=== PATIENT | female | born 1960 | race African-American/Black ===

== ENCOUNTER 2017-03-11 11:12 | Emergency (ER) | payer OTHER | END 2017-03-11 11:51 | disposition home or self-care (01) | LOC: NAV ERS 11:12 | DX: J42 Unspecified chronic bronchitis (principal); E11.9 Type 2 diabetes mellitus without complications; I10 Essential (primary) hypertension; F32.9 Major depressive disorder, single episode, unspecified; F41.9 Anxiety disorder, unspecified; Z79.899 Other long term (current) drug therapy; Z79.02 Long term (current) use of antithrombotics/antiplatelets; Z79.4 Long term (current) use of insulin | CPT/HCPCS: 99283 ==

== ENCOUNTER 2017-08-07 22:42 | Emergency (ER) | payer OTHER ==
[2017-08-07] MEDS ORDERED: HYDROcodone/Acetaminophen 5/325 mg Tablet ONE (23:29)
[2017-08-07] MEDS ORDERED: predniSONE 20 MG TAB ONE (23:29)
[2017-08-07] MEDS ORDERED: predniSONE 10 MG TAB ONE (23:29)
== END 2017-08-07 23:45 | disposition home or self-care (01) ==
LOC: NAV ERS 22:42
DX: M54.12 Radiculopathy, cervical region (principal); E11.42 Type 2 diabetes mellitus with diabetic polyneuropathy; E66.9 Obesity, unspecified; F41.9 Anxiety disorder, unspecified; I10 Essential (primary) hypertension; F32.9 Major depressive disorder, single episode, unspecified; Z86.73 Personal history of transient ischemic attack (TIA), and cerebral infarction without residual deficits; Z79.4 Long term (current) use of insulin; Z79.899 Other long term (current) drug therapy
CPT/HCPCS: 99283; J7506; J7512

== ENCOUNTER 2017-12-20 02:06 | Emergency (ER) | payer OTHER ==
[2017-12-20] MEDS ORDERED: Oseltamivir 75 MG CAP ONE (02:47)
== END 2017-12-20 02:48 | disposition home or self-care (01) ==
LOC: NAV ERS 02:06
DX: J11.1 Influenza due to unidentified influenza virus with other respiratory manifestations (principal); E11.40 Type 2 diabetes mellitus with diabetic neuropathy, unspecified; I10 Essential (primary) hypertension; F41.9 Anxiety disorder, unspecified; F32.9 Major depressive disorder, single episode, unspecified; E66.9 Obesity, unspecified; Z79.899 Other long term (current) drug therapy; Z86.73 Personal history of transient ischemic attack (TIA), and cerebral infarction without residual deficits; Z79.4 Long term (current) use of insulin
CPT/HCPCS: 87804; 99283

== ENCOUNTER 2018-02-07 21:47 | Emergency (ER) | payer OTHER ==
[2018-02-07] MEDS ORDERED: methylPREDNISolone Sod Succ/PF 125 MG/2 ML VIAL ONE (22:01)
== END 2018-02-07 22:30 | disposition home or self-care (01) ==
LOC: NAV ERS 21:47
DX: L25.9 Unspecified contact dermatitis, unspecified cause (principal); E66.9 Obesity, unspecified; E11.42 Type 2 diabetes mellitus with diabetic polyneuropathy; I10 Essential (primary) hypertension; G47.00 Insomnia, unspecified; F41.9 Anxiety disorder, unspecified; F32.9 Major depressive disorder, single episode, unspecified; Z79.4 Long term (current) use of insulin; Z86.73 Personal history of transient ischemic attack (TIA), and cerebral infarction without residual deficits; Z79.899 Other long term (current) drug therapy
CPT/HCPCS: 96372; J2930

== ENCOUNTER 2018-03-17 12:49 | Emergency (ER) | payer OTHER | END 2018-03-17 13:53 | disposition home or self-care (01) | LOC: NAV ERS 12:49 | DX: E11.42 Type 2 diabetes mellitus with diabetic polyneuropathy (principal); E66.9 Obesity, unspecified; I10 Essential (primary) hypertension; G47.30 Sleep apnea, unspecified; F41.9 Anxiety disorder, unspecified; F32.9 Major depressive disorder, single episode, unspecified; Z79.4 Long term (current) use of insulin; Z86.73 Personal history of transient ischemic attack (TIA), and cerebral infarction without residual deficits; Z79.02 Long term (current) use of antithrombotics/antiplatelets; Z79.899 Other long term (current) drug therapy | CPT/HCPCS: 36416; 99283 ==

== ENCOUNTER 2018-08-20 23:18 | Emergency (ER) | payer OTHER ==
[2018-08-21 00:01] LABS: #Basophils 0.1 thou/uL (0.0-0.2); #Eosinphils 0.2 thou/uL (0.0-0.7); #Lymphocytes 3.9 thou/uL (1.20-3.40); #Monocytes 0.7 thou/uL (0.11-0.59); %Basophils 1.3 % (0.0-1.0); %Monocytes 7.6 % (0.0-10.0); %Neutrophils 45.1 % (42.0-75.0); Hemoglobin 11.2 g/dL (12.0-16.0); Mean Corpuscular HGB CONC 30.7 g/dL (32.0-36.0); Mean Corpuscular Hemoglobin 25.8 pg (27.0-31.0); Mean Corpuscular Volume 83.9 fL (78.0-98.0); Mean Platelet Volume 10.7 fL (7.4-10.4); Platelet Count 329 thou/uL (130-400); RBC Distribution Width 14.1 % (11.5-14.5); Red Blood Cell (RBC) Count 4.33 mill/uL (4.20-5.40); White Blood Cell (WBC) Count 8.9 thou/uL (4.8-10.8)
[2018-08-21 00:15] LABS: ALT (SGPT) 20 U/L (8-55); AST (SGOT) 21 U/L (5-34); Albumin 3.9 g/dL (3.5-5.0); Alkaline Phosphatase 82 U/L (40-150); Anion Gap 15 mmol/L (10-20); BUN (Urea Nitrogen) 16 mg/dL (9.8-20.1); Bilirubin, Total 0.3 mg/dL (0.2-1.2); Calc. Creatinine Clearance 0 mL/min (70-130); Calcium 9.4 mg/dL (7.8-10.44); Carbon Dioxide 25 mmol/L (22-29); Chloride 104 mmol/L (98-107); Estimated GFR-MDRD 85; Globulin 3.1 g/dL (2.4-3.5); Glucose 180 mg/dL (70-105); Potassium 3.7 mmol/L (3.5-5.1); Sodium 140 mmol/L (136-145)
[2018-08-21 00:17] LABS: CKMB 1.8 ng/mL (0-6.6)
[2018-08-21] MEDS ORDERED: HYDROcodone/Acetaminophen 7.5/325 mg Tablet ONE (00:20)
--- NOTE | 2018-08-21 08:04 | RAD ---
CHEST PA AND LATERAL TWO VIEWS: History: 58-year-old female with history of chest pain. Comparison: 09-23-16 FINDINGS: Heart size is normal. The lungs are clear. No pneumonia, edema, pleural effusion or other acute proce ss. IMPRESSION: No acute intrathoracic disease. Stable from prior study. POS: OFF
--- NOTE | 2018-08-21 08:18 | CT ---
PRELIMINARY REPORT/[facility]/EMERGENTY AFTER-HOURS PROCEDURE CT Head Without Intravenous Contrast CLINICAL HISTORY: 58 years old, female; Pain; Headache TECHNIQUE: Axial computed tomography images of the head/brain without intravenous contrast. COMPARISON: No relevant prior studies available. FINDINGS: No definite acute skull fracture. Included paranasal sinuses are essentially clear. No acute intracranial hemorrhage or mass effect. Ventricle size is normal for age. No definite acute infarct by CT. IMPRESSION: No acute intracranial bleed or mass effect. Thank you for allowing us to participate in the care of your patient. Dictated and Authenticated by: Cade Fregoso MD 08/21/2018 1:03 AM Central Time ([place] & [place]) FINAL REPORT EMERGENCY AFTER HOURS BRAIN CT WITHOUT IV CONTRAST: Date: 08/21/18 Time: 0002 hours COMPARISON: 01/03/15. FINDINGS/IMPRESSION: No mass or bleed, or other acute process. Report in agreement with preliminary report given on-call by [facility]. POS: OFF
== END 2018-08-21 01:48 | disposition home or self-care (01) ==
LOC: NAV ERS 23:18
DX: M54.12 Radiculopathy, cervical region (principal); G62.9 Polyneuropathy, unspecified; Z86.73 Personal history of transient ischemic attack (TIA), and cerebral infarction without residual deficits; E11.9 Type 2 diabetes mellitus without complications; I10 Essential (primary) hypertension; G47.30 Sleep apnea, unspecified; Z79.4 Long term (current) use of insulin; F41.9 Anxiety disorder, unspecified; F32.9 Major depressive disorder, single episode, unspecified; Z79.899 Other long term (current) drug therapy
CPT/HCPCS: 70450; 71046; 80053; 82553; 84484; 85025; 93005

== ENCOUNTER 2018-08-23 18:07 | Emergency (ER) | payer OTHER ==
[2018-08-23] MEDS ORDERED: HYDROcodone/Acetaminophen 10/325 mg Tablet ONE (18:48)
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
== END 2018-08-23 21:17 | disposition home or self-care (01) ==
LOC: NAV ERS 18:07
DX: S33.5XXA Sprain of ligaments of lumbar spine, initial encounter (principal); S80.02XA Contusion of left knee, initial encounter; S50.02XA Contusion of left elbow, initial encounter; I10 Essential (primary) hypertension; Z86.73 Personal history of transient ischemic attack (TIA), and cerebral infarction without residual deficits; E66.9 Obesity, unspecified; E11.40 Type 2 diabetes mellitus with diabetic neuropathy, unspecified; G47.30 Sleep apnea, unspecified; F41.9 Anxiety disorder, unspecified; F32.9 Major depressive disorder, single episode, unspecified; Z79.4 Long term (current) use of insulin; Z79.899 Other long term (current) drug therapy; V43.52XA Car driver injured in collision with other type car in traffic accident, initial encounter
CPT/HCPCS: 72100

== ENCOUNTER 2018-08-25 09:40 | Emergency (ER) | payer OTHER | END 2018-08-25 10:30 | disposition left against medical advice (07) | LOC: NAV ERS 09:40 | DX: Z53.21 Procedure and treatment not carried out due to patient leaving prior to being seen by health care provider (principal) ==

== ENCOUNTER 2018-08-30 23:01 | Emergency (ER) | payer OTHER | END 2018-08-30 23:30 | disposition home or self-care (01) | LOC: NAV ERS 23:01 | DX: M62.838 Other muscle spasm (principal); L05.01 Pilonidal cyst with abscess; E78.5 Hyperlipidemia, unspecified; I10 Essential (primary) hypertension; Z79.899 Other long term (current) drug therapy | CPT/HCPCS: 99283 ==

== ENCOUNTER 2018-12-24 02:38 | Emergency (ER) | payer OTHER ==
--- NOTE | 2018-12-24 07:36 | RAD ---
FOUR VIEWS OF THE RIGHT KNEE: COMPARISON: None. HISTORY: Right knee pain and swelling for a week. FINDINGS: Four views right knee show no evidence of acute fracture or dislocation. There is severe patellofemo ral osteoarthritis with joint space narrowing and osteophyte formation. There are loose intracapsula r osseous bodies within the knee joints. A small knee effusion is seen. IMPRESSION: Severe right knee osteoarthritis without acute osseous abnormality. POS: [facility]
== END 2018-12-24 03:29 | disposition home or self-care (01) ==
LOC: NAV ERS 02:38
DX: M25.461 Effusion, right knee (principal); E11.40 Type 2 diabetes mellitus with diabetic neuropathy, unspecified; E78.5 Hyperlipidemia, unspecified; I10 Essential (primary) hypertension; Z79.4 Long term (current) use of insulin; Z79.899 Other long term (current) drug therapy; X50.9XXA Other and unspecified overexertion or strenuous movements or postures, initial encounter

== ENCOUNTER 2019-01-29 22:48 | Emergency (ER) | payer OTHER ==
--- NOTE | 2019-01-29 23:43 | RAD ---
LEFT SHOULDER THREE VIEWS: History: Pain. Comparison: None. FINDINGS: There are multiple calcified within the glenohumeral joint. Large glenoid and humeral head osteophyte s. Ossification along the biceps tendon versus old fracture of the glenoid. Ribs are intact. IMPRESSION: Severe degenerative changes of the shoulder. Nonemergent orthopedic consultation recommended for eval uation of arthroplasty. POS: [facility]
== END 2019-01-29 23:40 | disposition home or self-care (01) ==
LOC: NAV ERS 22:48
DX: M75.52 Bursitis of left shoulder (principal); E11.40 Type 2 diabetes mellitus with diabetic neuropathy, unspecified; E78.5 Hyperlipidemia, unspecified; I10 Essential (primary) hypertension; Z79.4 Long term (current) use of insulin; Z79.899 Other long term (current) drug therapy

== ENCOUNTER 2019-05-09 00:35 | Emergency (ER) | payer OTHER ==
[2019-05-09] MEDS ORDERED: Acetaminophen/Codeine 30-300mg Tablet ONE (01:15)
[2019-05-09] MEDS ORDERED: Cyclobenzaprine 10 MG TAB ONE (01:16)
== END 2019-05-09 02:10 | disposition home or self-care (01) ==
LOC: NAV ERS 00:35
DX: M62.830 Muscle spasm of back (principal); E11.40 Type 2 diabetes mellitus with diabetic neuropathy, unspecified; E78.5 Hyperlipidemia, unspecified; I10 Essential (primary) hypertension; F32.9 Major depressive disorder, single episode, unspecified; Z79.899 Other long term (current) drug therapy
CPT/HCPCS: 99283

== ENCOUNTER 2020-06-29 10:45 | Emergency (ER) | payer OTHER ==
[2020-06-29] MEDS ORDERED: methylPREDNISolone Sod Succ/PF 125 MG/2 ML VIAL ONE (11:12)
[2020-06-29] MEDS ORDERED: diphenhydrAMINE 50 MG/ML VIAL ONE (11:12)
[2020-06-29] MEDS ORDERED: Famotidine/PF 20 mg/2ml Vial ONE (11:12)
[2020-06-29] MEDS ORDERED: Sodium Chloride 0.9% 100 ML ONE (11:44)
[2020-06-29] MEDS ORDERED: Tranexamic Acid 1,000 MG/10 ML VIAL ONE (11:44)
== END 2020-06-29 12:45 | disposition home or self-care (01) ==
LOC: NAV ERS 10:45
DX: T78.3XXA Angioneurotic edema, initial encounter (principal); E11.40 Type 2 diabetes mellitus with diabetic neuropathy, unspecified; E78.5 Hyperlipidemia, unspecified; I10 Essential (primary) hypertension; Z79.4 Long term (current) use of insulin; Z79.899 Other long term (current) drug therapy
CPT/HCPCS: 94760; 96365; 96375; J1200; J2930; S0028

== ENCOUNTER 2020-08-10 16:22 | Emergency (ER) | payer OTHER | END 2020-08-10 17:11 | disposition home or self-care (01) | LOC: NAV ERS 16:22 | DX: M65.4 Radial styloid tenosynovitis [de Quervain] (principal); E11.40 Type 2 diabetes mellitus with diabetic neuropathy, unspecified; E78.5 Hyperlipidemia, unspecified; E78.00 Pure hypercholesterolemia, unspecified; I10 Essential (primary) hypertension; F32.9 Major depressive disorder, single episode, unspecified; Z79.4 Long term (current) use of insulin; Z79.899 Other long term (current) drug therapy | CPT/HCPCS: 29125 ==

== ENCOUNTER 2021-03-18 15:54 | Emergency (ER) | payer OTHER | END 2021-03-18 16:19 | disposition home or self-care (01) | LOC: NAV ERS 15:54 | DX: M25.562 Pain in left knee (principal); M25.551 Pain in right hip; E11.40 Type 2 diabetes mellitus with diabetic neuropathy, unspecified; E78.5 Hyperlipidemia, unspecified; I10 Essential (primary) hypertension; Z79.4 Long term (current) use of insulin; Z79.899 Other long term (current) drug therapy | CPT/HCPCS: 99281 ==

== ENCOUNTER 2021-05-11 15:40 | Outpatient (CLI) | payer OTHER | END 2021-05-11 15:41 | disposition home or self-care (01) | LOC: NAV RAD 15:40 | PROVIDERS: ATTEND Nurse Practitioner Family | DX: M17.12 Unilateral primary osteoarthritis, left knee (principal) ==

== ENCOUNTER 2021-05-26 20:44 | Emergency (ER) | payer OTHER ==
[2021-05-26] MEDS ORDERED: Lidocaine 1% (PF) 30 ML VIAL ONE (21:35)
[2021-05-26] MEDS ORDERED: Sulfameth/Trimethoprim DS 800-160mg TAB ONE (21:50)
== END 2021-05-26 21:52 | disposition home or self-care (01) ==
LOC: NAV ERS 20:44
DX: N76.4 Abscess of vulva (principal); E11.9 Type 2 diabetes mellitus without complications; E78.5 Hyperlipidemia, unspecified; I10 Essential (primary) hypertension; Z79.4 Long term (current) use of insulin; Z79.899 Other long term (current) drug therapy
CPT/HCPCS: 56405; 87070; 87077; 87186; 87205; J2001

== ENCOUNTER 2021-08-30 21:43 | Emergency (ER) | payer OTHER ==
[2021-08-30 22:13] LABS: Hemoglobin 13.1 g/dL (12.0-16.0); Mean Corpuscular HGB CONC 29.9 g/dL (32.0-36.0); Mean Corpuscular Hemoglobin 25.5 pg (27.0-31.0); Mean Corpuscular Volume 85.4 fL (78.0-98.0); Platelet Count 260 thou/uL (130-400); Red Blood Cell (RBC) Count 5.12 mill/uL (4.20-5.40); White Blood Cell (WBC) Count 10.4 thou/uL (4.8-10.8)
[2021-08-30 22:18] LABS: #Basophils 0.1 thou/uL (0.0-0.2); #Eosinphils 0.1 thou/uL (0.0-0.7); #Lymphocytes 4.5 thou/uL (1.20-3.40); #Monocytes 0.7 thou/uL (0.11-0.59); %Basophils 0.8 % (0.0-1.0); %Eosinophils 0.7 % (0.0-10.0); %Lymphocytes 43.1 % (21.0-51.0); %Monocytes 7.1 % (0.0-10.0); %Neutrophils 48.2 % (42.0-75.0); Hypochromia SLIGHT = 6-15 cells (100X) (0-5/hpf); MDiff Complete? YES; Platelet Morphology Comment Appears Adequate
[2021-08-30 22:24] LABS: ALT (SGPT) 15 U/L (8-55); AST (SGOT) 17 U/L (5-34); Albumin 3.9 g/dL (3.4-4.8); Alkaline Phosphatase 102 U/L (40-110); Anion Gap 13 mmol/L (10-20); BUN (Urea Nitrogen) 11 mg/dL (9.8-20.1); Bilirubin, Total 0.5 mg/dL (0.2-1.2); Calc. Creatinine Clearance 0 mL/min (70-130); Calcium 9.1 mg/dL (7.8-10.44); Carbon Dioxide 26 mmol/L (23-31); Chloride 109 mmol/L (98-107); Globulin 3.7 g/dL (2.4-3.5); Glucose 78 mg/dL (80-115); Protein, Total 7.6 g/dL (5.8-8.1); Sodium 145 mmol/L (136-145)
== END 2021-08-30 22:35 | disposition home or self-care (01) ==
LOC: NAV ERS 21:43
DX: R42 Dizziness and giddiness (principal); R51.9 Headache, unspecified; Z79.899 Other long term (current) drug therapy; Z79.4 Long term (current) use of insulin; E11.40 Type 2 diabetes mellitus with diabetic neuropathy, unspecified; E78.5 Hyperlipidemia, unspecified; E78.00 Pure hypercholesterolemia, unspecified; I10 Essential (primary) hypertension
CPT/HCPCS: 36416; 80053; 84484; 85025; 93005

== ENCOUNTER 2022-03-16 21:05 | Emergency (ER) | payer OTHER ==
[2022-03-16] MEDS ORDERED: Sulfameth/Trimethoprim DS 800-160mg TAB ONE (21:21)
== END 2022-03-16 21:32 | disposition home or self-care (01) ==
LOC: NAV ERS 21:05
DX: L02.416 Cutaneous abscess of left lower limb (principal); I10 Essential (primary) hypertension; E78.5 Hyperlipidemia, unspecified; E78.00 Pure hypercholesterolemia, unspecified; E11.40 Type 2 diabetes mellitus with diabetic neuropathy, unspecified; G47.30 Sleep apnea, unspecified; Z79.4 Long term (current) use of insulin; Z86.73 Personal history of transient ischemic attack (TIA), and cerebral infarction without residual deficits
CPT/HCPCS: 36416; 99283

== ENCOUNTER 2022-05-29 02:58 | Emergency (ER) | payer OTHER ==
[2022-05-29] MEDS ORDERED: Acetaminophen 325 MG TAB ONE (03:27)
== END 2022-05-29 03:33 | disposition home or self-care (01) ==
LOC: NAV ERS 02:58
DX: J34.89 Other specified disorders of nose and nasal sinuses (principal); E11.40 Type 2 diabetes mellitus with diabetic neuropathy, unspecified; E78.5 Hyperlipidemia, unspecified; I10 Essential (primary) hypertension; Z79.4 Long term (current) use of insulin; Z79.899 Other long term (current) drug therapy
CPT/HCPCS: 99283

== ENCOUNTER 2022-10-31 00:12 | Emergency (ER) | payer OTHER ==
[2022-10-31] MEDS ORDERED: Sodium Chloride 0.9% 1,000 ML ONE (01:12)
[2022-10-31] MEDS ORDERED: Ketorolac Tromethamine 30 MG/ML VIAL ONE ×2 (01:12→01:41)
[2022-10-31] MEDS ORDERED: Oxymetazoline HCl 0.05% (30 ML BOT) ONE (01:12)
[2022-10-31] MEDS ORDERED: Metoclopramide HCl 10 MG/2 ML VIAL ONE (01:12)
[2022-10-31] MEDS ORDERED: Ventolin HFA Inhaler 60 PUFF INHALER ONE (01:47)
== END 2022-10-31 01:59 | disposition home or self-care (01) ==
LOC: NAV ERS 00:12
DX: U07.1 COVID-19 (principal); J06.9 Acute upper respiratory infection, unspecified; E78.00 Pure hypercholesterolemia, unspecified; E11.40 Type 2 diabetes mellitus with diabetic neuropathy, unspecified; I10 Essential (primary) hypertension; Z86.73 Personal history of transient ischemic attack (TIA), and cerebral infarction without residual deficits; Z79.899 Other long term (current) drug therapy; Z79.02 Long term (current) use of antithrombotics/antiplatelets; Z79.4 Long term (current) use of insulin
CPT/HCPCS: 87804; 87807; 96372; 99284; J1885; J2765; J7050; U0003; U0005

== ENCOUNTER 2023-03-15 15:31 | Emergency (ER) | payer OTHER ==
[2023-03-15] MEDS ORDERED: Ketorolac Tromethamine 60 MG/2 ML VIAL ONE (16:51)
== END 2023-03-15 17:45 | disposition home or self-care (01) ==
LOC: NAV ERS 15:31
DX: M54.2 Cervicalgia (principal); R50.9 Fever, unspecified; E11.40 Type 2 diabetes mellitus with diabetic neuropathy, unspecified; E78.00 Pure hypercholesterolemia, unspecified; I10 Essential (primary) hypertension; Z86.73 Personal history of transient ischemic attack (TIA), and cerebral infarction without residual deficits; Z79.4 Long term (current) use of insulin
CPT/HCPCS: 36416; 87804; 96372; 99284; J1885

== ENCOUNTER 2023-06-12 03:16 | Emergency (ER) | payer OTHER | END 2023-06-12 04:05 | disposition home or self-care (01) | LOC: NAV ERS 03:16 | DX: L29.9 Pruritus, unspecified (principal); I10 Essential (primary) hypertension; E11.9 Type 2 diabetes mellitus without complications; Z86.73 Personal history of transient ischemic attack (TIA), and cerebral infarction without residual deficits; Z79.02 Long term (current) use of antithrombotics/antiplatelets; Z79.4 Long term (current) use of insulin | CPT/HCPCS: 99282 ==

== ENCOUNTER 2025-09-23 17:34 | Emergency (ER) | payer MEDICARE, MEDICAID ==
[2025-09-23 19:29] LABS: Hematocrit 23.4 % (36.0-47.0); Hemoglobin 7.8 g/dL (12.0-16.0); Mean Corpuscular Hemoglobin 31.1 pg (27.0-31.0); Mean Corpuscular Volume 93.5 fl (78.0-98.0); Platelet Count 323 10x3/uL (130-400); Red Blood Cell (RBC) Count 2.50 mill/uL (4.20-5.40)
[2025-09-23 19:31] LABS: ALT (SGPT) 23 U/L (Less than 34); AST (SGOT) 33 U/L (11-34); Albumin 2.9 g/dL (3.1-4.5); Alkaline Phosphatase 127 U/L (40-110); Anion Gap 18 mmol/L (10-20); BUN (Urea Nitrogen) 19 mg/dL (9.8-20.1); Bilirubin, Total 5.8 mg/dL (0.3-1.2); Calc. Creatinine Clearance 0 mL/min (70-130); Calcium 8.1 mg/dL (7.8-10.44); Carbon Dioxide 21 mmol/L (23-31); Chloride 98 mmol/L (98-107); Globulin 3.0 g/dL (2.4-3.5); Lipase 8 U/L (8-78); Potassium 4.0 mmol/L (3.5-5.1); Sodium 133 mmol/L (136-145)
[2025-09-23 19:33] LABS: Glucose 585 mg/dL (80-115)
[2025-09-23 19:41] LABS: MDiff Complete? YES
[2025-09-23 20:18] LABS: Nucleated RBC (Manual Ct) 30 % (0); Reflex for Review?? YES
[2025-09-23 20:23] LABS: White Blood Cell (WBC) Count 13.2 10x3/uL (4.8-10.8)
[2025-09-24 00:06] LABS: Anion Gap 15 mmol/L (10-20); BUN (Urea Nitrogen) 20 mg/dL (9.8-20.1); Bicarbonate (HCO3v) 26.5 mmol/L (22.0-28.0); CO2 Tension (PvCO2) 37.9 mmHg (42.0-51.0); Calc. Creatinine Clearance 0 mL/min (70-130); Calcium 7.8 mg/dL (7.8-10.44); Calcium, Ionized 1.11 mmol/L (1.15-1.33); Carbon Dioxide 24 mmol/L (23-31); Chloride 100 mmol/L (98-107); Hemoglobin - Calc 6.4 g/dL (12.0-16.0); Potassium 3.6 mmol/L (3.5-5.1); Potassium 3.7 mmol/L (3.5-5.1); Sodium 135 mmol/L (136-145); Sodium 135 mmol/L (138-145); T. Carbon Dioxide 27.6 mmol/L (22.0-28.0); vO2 Saturation-calc 97.2 % (60.0-85.0)
[2025-09-24 00:09] LABS: Glucose 459 mg/dL (80-115)
[2025-09-24 00:19] LABS: Troponin I 0.133 ng/mL (< 0.028)
[2025-09-24] MEDS ORDERED: Enoxaparin 100 MG (1 mL) SYRINGE ONE (04:51)
[2025-09-24] MEDS ORDERED: Iopamidol 370 76% 100 ML VIAL ONE (09:00)
== END 2025-09-24 05:45 | disposition short-term general hospital (02) ==
LOC: NAV ERS 17:34
DX: R06.02 Shortness of breath (principal); E11.65 Type 2 diabetes mellitus with hyperglycemia; D64.9 Anemia, unspecified; E86.0 Dehydration; R09.02 Hypoxemia; I10 Essential (primary) hypertension; Z95.5 Presence of coronary angioplasty implant and graft; Z79.84 Long term (current) use of oral hypoglycemic drugs; Z79.899 Other long term (current) drug therapy
CPT/HCPCS: 36415; 36416; 36556; 71045; 71275; 80053; 82010; 82330; 82803; 83605; 83690; 83880; 84484; 85025; 85060; 85379; 87428; 93005; 96361; 96372; 96374; J1650; J1815; J2272; J7030; Q9967

== ENCOUNTER 2025-10-16 16:09 | Emergency (ER) | payer MEDICARE, MEDICAID | END 2025-10-16 17:05 | disposition home or self-care (01) | LOC: NAV ERS 16:09 | DX: T82.514A Breakdown (mechanical) of infusion catheter, initial encounter (principal); I10 Essential (primary) hypertension; E11.40 Type 2 diabetes mellitus with diabetic neuropathy, unspecified; Z86.718 Personal history of other venous thrombosis and embolism; Z79.899 Other long term (current) drug therapy; Z79.84 Long term (current) use of oral hypoglycemic drugs; Z79.4 Long term (current) use of insulin | CPT/HCPCS: 99283 ==

== ENCOUNTER 2025-11-05 14:02 | Emergency (ER) | payer OTHER ==
[2025-11-05 15:43] LABS: Hematocrit 33.3 % (36.0-47.0); Hemoglobin 10.9 g/dL (12.0-16.0); Mean Corpuscular Hemoglobin 29.1 pg (27.0-31.0); Mean Corpuscular Volume 88.6 fl (78.0-98.0); Platelet Count 110 10x3/uL (130-400); Red Blood Cell (RBC) Count 3.76 mill/uL (4.20-5.40); White Blood Cell (WBC) Count 8.9 10x3/uL (4.8-10.8)
[2025-11-05 15:44] LABS: Anisocytosis SLIGHT = 6-15 cells (100X) (0-5/hpf); Platelet Adequacy Comment Platelets Normal; Target Cells SLIGHT = 2-5 cells (100X) (0-1/hpf)
[2025-11-05 15:45] LABS: Bicarbonate (HCO3v) 22.8 mmol/L (22.0-28.0); CO2 Tension (PvCO2) 34.5 mmHg (42.0-51.0); Calcium, Ionized 1.08 mmol/L (1.15-1.33); Chloride 96 mmol/L (98-107); Hemoglobin - Calc 11.8 g/dL (12.0-16.0); Potassium 3.9 mmol/L (3.5-5.1); Sodium 131 mmol/L (138-145); T. Carbon Dioxide 23.9 mmol/L (22.0-28.0); vO2 Saturation-calc 69.2 % (60.0-85.0)
[2025-11-05 15:48] LABS: ALT (SGPT) 37 U/L (Less than 34); AST (SGOT) 33 U/L (11-34); Albumin 2.3 g/dL (3.1-4.5); Alkaline Phosphatase 142 U/L (40-110); Anion Gap 22 mmol/L (10-20); BUN (Urea Nitrogen) 14 mg/dL (9.8-20.1); Bilirubin, Total 1.1 mg/dL (0.3-1.2); Calc. Creatinine Clearance 0 mL/min (70-130); Calcium 8.6 mg/dL (7.8-10.44); Carbon Dioxide 17 mmol/L (23-31); Chloride 95 mmol/L (98-107); Globulin 3.6 g/dL (2.4-3.5); Lipase 10 U/L (8-78); Magnesium 1.9 mg/dL (1.6-2.6); Potassium 4.0 mmol/L (3.5-5.1); Sodium 130 mmol/L (136-145)
[2025-11-05 15:56] LABS: Glucose 778 mg/dL (80-115)
[2025-11-05] MEDS ORDERED: Acetaminophen 325 MG TAB ONE ×2 (16:25→22:00)
[2025-11-05] MEDS ORDERED: Cefepime 2 GM VIAL ONE (16:26)
[2025-11-05 17:08] LABS: CAUTI Indications for Culture Fever or rigors; Glucose, Urine (Dipstick) >=1000 mg/dL (Negative); Leukocyte Negative (Negative); Protein, Urine (Dipstick) Negative (Neg-Trace); RBC/HPF 0-3 HPF (0-3); Specific Gravity, Urine Less/Equal 1.005 (1.005-1.030)
[2025-11-05 17:09] LABS: Urine Culture Reflex No No
== END 2025-11-05 22:15 | disposition short-term general hospital (02) ==
LOC: NAV ERS 14:02
DX: E11.65 Type 2 diabetes mellitus with hyperglycemia (principal); E11.10 Type 2 diabetes mellitus with ketoacidosis without coma; C95.90 Leukemia, unspecified not having achieved remission; C91.10 Chronic lymphocytic leukemia of B-cell type not having achieved remission; D64.9 Anemia, unspecified; I10 Essential (primary) hypertension; E78.5 Hyperlipidemia, unspecified; E11.40 Type 2 diabetes mellitus with diabetic neuropathy, unspecified; Z79.899 Other long term (current) drug therapy; Z79.01 Long term (current) use of anticoagulants; Z86.718 Personal history of other venous thrombosis and embolism; Z79.84 Long term (current) use of oral hypoglycemic drugs; Z79.4 Long term (current) use of insulin
CPT/HCPCS: 36416; 71045; 80053; 81001; 82010; 82330; 82435; 82803; 83605; 83690; 83735; 84100; 84132; 84295; 85014; 85025; 87040; 87077; 87149; 87186; 87428; 94760; 96361; 96365; 96367; 96375; 96376; J0692; J1815; J3373; J7030